=== PATIENT | female | born 1980 | race Hispanic/Latino ===

== ENCOUNTER 2019-10-13 19:35 | Emergency (ER) | payer BC ==
[2019-10-13] MEDS ORDERED: ONDANSETRON ODT 4 MG TAB ONE (21:27)
[2019-10-13] MEDS ORDERED: MORPHINE SULFATE 8 MG/ML VIAL ONE (21:28)
== END 2019-10-13 22:57 | disposition home or self-care (01) ==
LOC: EDH 19:35
DX: S93.602A Unspecified sprain of left foot, initial encounter (principal); S30.0XXA Contusion of lower back and pelvis, initial encounter; Z88.6 Allergy status to analgesic agent; Z87.891 Personal history of nicotine dependence; W18.39XA Other fall on same level, initial encounter; Y93.01 Activity, walking, marching and hiking; Y92.89 Other specified places as the place of occurrence of the external cause; Y99.8 Other external cause status
CPT/HCPCS: 72170; 73630; 96372; 99284; J2270